=== PATIENT | male | born 2000 | race African-American/Black ===

== ENCOUNTER 2021-10-26 09:14 | Emergency (ER) | payer MEDICAID ==
[~2021-10-26] VITALS: Ht 185.4 cm; Wt 72.1 kg
[2021-10-26 09:21] VITALS: BP 109/78
--- NOTE | 2021-10-26 09:25 | NUR ---
PT AMBULATED TO BED 12 WITH STEADY GAIT
--- NOTE | 2021-10-26 09:30 | NUR ---
21 Y/O MALE BIB SELF C/O LEFT TESTICLE 6/10 PAIN AND SWELLING [id number]. DENIES ANY DISCHARGE, FEVER,URINARY SYMPTOMS. DENIES ANY SEXUAL PARTNERS. LUNGS CTA. PT DENIES CHEST PAIN, SOB. PT DENIES FEVER OR CHILLS. PT IS ALERT AND ORIENTED X4. BED LOCKED IN LOWEST POSITION. BED RAILX1. NKA PMH: DENIES
--- NOTE | 2021-10-26 09:41 | NUR ---
US AT PT BEDSIDE
--- NOTE | 2021-10-26 11:16 | NUR ---
DR RAMSAY AT BEDSIDE FOR EVAL
[2021-10-26] MEDS ORDERED: IBUPROFEN 600 MG TAB PO ONE (11:25)
[2021-10-26] MEDS ORDERED: IBUP-2213 PO (11:48)
[2021-10-26 11:57] VITALS: BP 124/67
== END 2021-10-26 11:58 | disposition home or self-care (01) ==
LOC: MED 09:14
DX: N50.3 Cyst of epididymis (principal); F17.200 Nicotine dependence, unspecified, uncomplicated
CPT/HCPCS: 76870; 81002; 99284; Q0092